=== PATIENT | male | born 1955 | race Caucasian/White ===

== ENCOUNTER → 2021-12-06 | Outpatient (CLI) | payer MEDICARE, OTHER ==
[~2021-12-06] MED LIST: ECOTRIN81 MG PO; LIORESAL TAB 1010 MG PO; NEURONTIN 300300 MG PO; OMEPRAZOLE40 MG PO; OMNICEF 300 MG300 MG PO; REMERON15 MG PO; SYNTHROID25 MCG PO; TRAMADOL HCL50 MG PO; VISTARIL25 MG PO; VOLTAREN EC 7575 MG PO
== END ==
LOC: CT 09:30
DX: R31.29 Other microscopic hematuria (principal); N20.0 Calculus of kidney
CPT/HCPCS: Q9967